=== PATIENT | female | born 1970 | race African-American/Black ===

== ENCOUNTER 2016-06-26 14:38 | Inpatient (IN) | payer OTHER ==
[2016-06-26] VITALS (9 sets, daily range): BP systolic 91–129; BP diastolic 68–94
[~2016-06-26] VITALS: Ht 165.1 cm; Wt 61.3 kg
[~2016-06-26 14:38] MED LIST: CIPRO500 MG PO; CYANOCOBALAM1000 MCG PO; KEPPRA500 MG PO; LIBRIUM25 MG PO; MOTRIN800 MG PO; SIMVASTATIN10 MG PO; VITAMIN D-32000 UNI2 PO
[2016-06-26 15:34] LABS: HEMATOCRIT 41.8 % (36.0-46.0); MCH 32.9 PG (29.0-34.0); MCHC 33.7 G/DL (30.0-36.0); MCV 97.7 FL (83-99); MEAN PLAT.VOLUME 10.2 uM^3 (9.5-12.4); PLATELET COUNT 101 K/uL (156-360); RBC DIS.WIDTH-CV 14.5 % (11.8-14.6); RBC DIS.WIDTH-SD 49.2 % (39-53); RED BLOOD COUNT 4.28 M/uL (3.80-5.20); WHITE BLOOD COUNT 6.1 K/uL (4.1-10.2)
[2016-06-26 15:46] LABS: BICARBONATE 23.1 mEq/L (22-26); CARBOXY HGB 3.7 % (0-5); METHEMOGLOBIN 1.2 % (0-1.5); PO2 76 mm Hg (80-100)
[2016-06-26 15:47] LABS: COMMENTS - BLOOD GASES A+C+; DEVICE VENT; FI02 50 %; MECHANICAL RATE 14 resp/min; MODE A/C; PCO2 40 mm Hg (35-45); PEEP 5 CM/H20; SITE RR; TIDAL VOLUME 400 ML; TOTAL RESP RATE 14 resp/min; pH 7.37 (7.35-7.45)
[2016-06-26 15:57] LABS: TROP-I INTERPRETATION NEGATIVE; TROPONIN-I 0.06 ng/mL (0.0-0.30)
[2016-06-26 16:08] LABS: CHLORIDE 106 mEq/L (99-109); POTASSIUM 3.4 mEq/L (3.7-5.4); SODIUM 139 mEq/L (136-147)
[2016-06-26 16:11] LABS: GLUCOSE 118 mg/dL (70-99)
[2016-06-26 16:12] LABS: ANION GAP 14 MEQ/L (2-14); TOTAL BILIRUBIN 0.5 mg/dL (0.0-1.0)
[2016-06-26 16:14] LABS: ALKALINE PHOSPHATASE 87 IU/L (3-129); GFR ESTIMATE (CALCULATED) > 59 mL/min/; SERUM ETHYL ALCOHOL < 10 mg/dL
[2016-06-26 16:15] LABS: UREA NITROGEN (BUN) 10 mg/dL (9-23)
[2016-06-26 16:45] LABS: ADD MIUA? YES; BILIRUBIN NEGATIVE; BLOOD NEGATIVE; COLOR YELLOW ((YELLOW)); GLUCOSE (STRIP) NEGATIVE; KETONES NEGATIVE; LEUKOCYTES NEGATIVE; NITRITE NEGATIVE; PROTEIN (STRIP) 100; SPECIFIC GRAVITY 1.015 (1.000-1.030); UROBILINOGEN 0.2 MG/DL (0.2-1.0)
[2016-06-26 16:57] LABS: BACTERIA RARE /HPF; EPITHELIAL CELLS RARE /HPF; HYALINE CASTS 15-20 /LPF; MUCUS TRACE /LPF; RED BLOOD CELLS 0-5 /HPF (0-5); UCUL ADDED? NO; UNCLASSIFIED CASTS 0-5 /LPF; WHITE BLOOD CELLS 0-5 /HPF (0-5)
[2016-06-26] MEDS ORDERED: KEPPRA1000 MG PO (17:03)
[2016-06-26] MEDS ORDERED: CYANOCOBALAM1000 MCG PO (17:03)
[2016-06-26] MEDS ORDERED: NAPROXEN500 MG PO (17:04)
[2016-06-26] MEDS ORDERED: TRAMADOL HCL50 MG PO (17:04)
[2016-06-26 21:15] LABS: METH RESISTANT S AUREUS PCR NEGATIVE (NEGATIVE)
[2016-06-26 21:17] LABS: PROBE CHECK PASS; SPECIMEN PROCESSING CONTROL PASS
[2016-06-27] VITALS (28 sets, daily range): BP systolic 80–130; BP diastolic 53–86
[2016-06-27 02:37] LABS: AMPHETAMINE NEGATIVE (500 ng/mL); BARBITURATES NEGATIVE (200 ng/mL); BENZODIAZEPINES PRESUMPTIVE POSITIVE (150 ng/mL); COCAINE NEGATIVE (150 ng/mL); INTERNAL CONTROLS VALID? YES; METHADONE NEGATIVE (200 ng/mL); METHAMPHETAMINE NEGATIVE (500 ng/mL); OPIATES (MORPHINE) NEGATIVE (100 ng/mL); OXYCODONE NEGATIVE (100 ng/mL); PHENCYCLIDINE NEGATIVE (25 ng/mL); PROPOXYPHENE NEGATIVE (300 ng/mL); THC CANNABINOIDS NEGATIVE (50 ng/mL); TRICYCLIC ANTIDEPRESSANTS NEGATIVE (300 ng/mL)
[2016-06-27 02:38] LABS: ADD MEDTOX COMMENT Y
[2016-06-27 04:06] LABS: BENZODIAZEPINES, URINE SCREEN POSITIVE (200 ng/mL)
[2016-06-27 08:37] LABS: ALKALINE PHOSPHATASE 65 IU/L (3-129); DIRECT BILIRUBIN 0.1 mg/dL (0.0-0.3); TOTAL BILIRUBIN 0.6 MG/DL (0.0-1.0)
[2016-06-27 09:34] LABS: EOSINOPHIL (%) 0 % (0-5); HEMATOCRIT 38.6 % (36.0-46.0); IMMATURE GRANULOCYTE (%) 0.2 % (0.0-0.7); LYMPHOCYTE COUNT 0.9 K/uL (1.0-2.8); MCH 34.4 PG (29.0-34.0); MCV 98.5 FL (83-99); MEAN PLAT.VOLUME 11.9 uM^3 (9.5-12.4); MONOCYTE (%) 12.7 % (3-12); MONOCYTE COUNT 0.7 K/uL (0-0.8); NEUTROPHIL (%) 69.6 % (45-76); NEUTROPHIL COUNT 3.7 K/uL (1.8-6.4); PLATELET COUNT 96 K/uL (156-360); RBC DIS.WIDTH-CV 15.1 % (11.8-14.6); RBC DIS.WIDTH-SD 54.4 % (39-53); RED BLOOD COUNT 3.92 M/uL (3.80-5.20); WHITE BLOOD COUNT 5.3 K/uL (4.1-10.2)
[2016-06-27 09:54] LABS: ANION GAP 11 MEQ/L (2-14); CHLORIDE 107 MEQ/L (99-109); MAGNESIUM 1.5 mg/dl (1.3-2.7); SAMPLE HEMOLYSIS CHECK 0; SAMPLE ICTERIC CHECK 0; SAMPLE LIPEMIA CHECK 0; SODIUM 138 MEQ/L (136-147)
[2016-06-27 10:00] LABS: GFR ESTIMATE (CALCULATED) > 59 mL/min/; GLUCOSE 121 mg/dL (70-99); UREA NITROGEN (BUN) 7 mg/dL (9-23)
[2016-06-28] VITALS (23 sets, daily range): BP systolic 80–157; BP diastolic 48–95
[2016-06-28 06:24] LABS: ANION GAP 8 MEQ/L (2-14); CHLORIDE 109 MEQ/L (99-109); POTASSIUM 3.4 MEQ/L (3.7-5.4); SAMPLE HEMOLYSIS CHECK 0; SAMPLE ICTERIC CHECK 0; SAMPLE LIPEMIA CHECK 0; SODIUM 140 MEQ/L (136-147)
[2016-06-28 06:30] LABS: GFR ESTIMATE (CALCULATED) > 59 mL/min/; GLUCOSE 99 mg/dL (70-99); UREA NITROGEN (BUN) 6 mg/dL (9-23)
[2016-06-28 06:45] LABS: MAGNESIUM 2.2 mg/dl (1.3-2.7)
[2016-06-28 06:55] LABS: EOSINOPHIL (%) 0 % (0-5); HEMATOCRIT 36.8 % (36.0-46.0); IMMATURE GRANULOCYTE (%) 0.2 % (0.0-0.7); LYMPHOCYTE COUNT 1.5 K/uL (1.0-2.8); MCH 34.2 PG (29.0-34.0); MCHC 35.3 G/DL (30.0-36.0); MCV 96.8 FL (83-99); MEAN PLAT.VOLUME 12.2 uM^3 (9.5-12.4); MONOCYTE (%) 7.2 % (3-12); MONOCYTE COUNT 0.7 K/uL (0-0.8); NEUTROPHIL (%) 76.6 % (45-76); NEUTROPHIL COUNT 7.1 K/uL (1.8-6.4); PLATELET COUNT 93 K/uL (156-360); RBC DIS.WIDTH-CV 14.7 % (11.8-14.6); RBC DIS.WIDTH-SD 51.6 % (39-53); WHITE BLOOD COUNT 9.2 K/uL (4.1-10.2)
[2016-06-28 20:27] LABS: BASE EXCESS -0.5 mEq/L (-3 to +3); BICARBONATE 22.8 mEq/L (22-26); CARBOXY HGB 1.8 % (0-5); COMMENTS - BLOOD GASES A+C+; DEVICE VM; FI02 50 %; METHEMOGLOBIN 1.7 % (0-1.5); O2 FLOW 12 L/MIN; PCO2 32 mm Hg (35-45); PO2 97 mm Hg (80-100); SITE LR; TOTAL RESP RATE 22 resp/min; pH 7.46 (7.35-7.45)
[2016-06-29] VITALS (7 sets, daily range): BP systolic 118–152; BP diastolic 81–93
[2016-06-29 06:09] LABS: EOSINOPHIL (%) 0 % (0-5); IMMATURE GRANULOCYTE (%) 0.1 % (0.0-0.7); LYMPHOCYTE COUNT 1.2 K/uL (1.0-2.8); MCH 32.8 PG (29.0-34.0); MCV 96.4 FL (83-99); MEAN PLAT.VOLUME 11.2 uM^3 (9.5-12.4); MONOCYTE COUNT 0.6 K/uL (0-0.8); NEUTROPHIL (%) 77.7 % (45-76); NEUTROPHIL COUNT 6.2 K/uL (1.8-6.4); PLATELET COUNT 116 K/uL (156-360); RBC DIS.WIDTH-CV 14.9 % (11.8-14.6); RBC DIS.WIDTH-SD 52.6 % (39-53); RED BLOOD COUNT 3.63 M/uL (3.80-5.20)
[2016-06-29 06:49] LABS: ANION GAP 13 MEQ/L (2-14); CHLORIDE 103 MEQ/L (99-109); GFR ESTIMATE (CALCULATED) > 59 mL/min/; GLUCOSE 96 mg/dL (70-99); SAMPLE HEMOLYSIS CHECK 0; SAMPLE ICTERIC CHECK 0; SAMPLE LIPEMIA CHECK 0; SODIUM 137 MEQ/L (136-147); UREA NITROGEN (BUN) 4 mg/dL (9-23)
[2016-06-29 07:05] LABS: MAGNESIUM 1.6 mg/dl (1.3-2.7)
[2016-06-30] VITALS (8 sets, daily range): BP systolic 104–129; BP diastolic 76–87
[2016-06-30 06:34] LABS: ALKALINE PHOSPHATASE 41 IU/L (3-129); ANION GAP 8 MEQ/L (2-14); CHLORIDE 106 MEQ/L (99-109); EOSINOPHIL (%) 0.4 % (0-5); GFR ESTIMATE (CALCULATED) > 59 mL/min/; GLUCOSE 96 mg/dL (70-99); IMMATURE GRANULOCYTE (%) 0.2 % (0.0-0.7); LYMPHOCYTE COUNT 1.4 K/uL (1.0-2.8); MAGNESIUM 1.8 mg/dl (1.3-2.7); MCH 32.5 PG (29.0-34.0); MCHC 33.5 G/DL (30.0-36.0); MCV 96.9 FL (83-99); MEAN PLAT.VOLUME 11.2 uM^3 (9.5-12.4); MONOCYTE (%) 9.8 % (3-12); MONOCYTE COUNT 0.5 K/uL (0-0.8); NEUTROPHIL (%) 62.9 % (45-76); NEUTROPHIL COUNT 3.3 K/uL (1.8-6.4); PLATELET COUNT 147 K/uL (156-360); POTASSIUM 3.3 MEQ/L (3.7-5.4); RBC DIS.WIDTH-CV 14.9 % (11.8-14.6); RBC DIS.WIDTH-SD 53.1 % (39-53); RED BLOOD COUNT 3.51 M/uL (3.80-5.20); SAMPLE HEMOLYSIS CHECK 0; SAMPLE ICTERIC CHECK 0; SAMPLE LIPEMIA CHECK 0; SODIUM 140 MEQ/L (136-147); TOTAL BILIRUBIN 0.5 MG/DL (0.0-1.0); UREA NITROGEN (BUN) 5 mg/dL (9-23)
[2016-06-30 06:38] LABS: WHITE BLOOD COUNT 5.2 K/uL (4.1-10.2)
[2016-07-01] VITALS (9 sets, daily range): BP systolic 126–142; BP diastolic 85–97
[2016-07-01 05:54] LABS: EOSINOPHIL (%) 0.2 % (0-5); HEMATOCRIT 33.5 % (36.0-46.0); LYMPHOCYTE COUNT 1.4 K/uL (1.0-2.8); MCHC 34.3 G/DL (30.0-36.0); MCV 99.1 FL (83-99); MONOCYTE (%) 14.1 % (3-12); MONOCYTE COUNT 0.7 K/uL (0-0.8); NEUTROPHIL (%) 59.1 % (45-76); RBC DIS.WIDTH-CV 14.9 % (11.8-14.6); RBC DIS.WIDTH-SD 53.7 % (39-53); RED BLOOD COUNT 3.38 M/uL (3.80-5.20); WHITE BLOOD COUNT 5.1 K/uL (4.1-10.2)
[2016-07-01 06:50] LABS: MEAN PLAT.VOLUME 11.1 uM^3 (9.5-12.4)
[2016-07-01 06:52] LABS: PLATELET COUNT 196 K/uL (156-360)
[2016-07-01 06:54] LABS: ALKALINE PHOSPHATASE 41 IU/L (3-129); ANION GAP 10 MEQ/L (2-14); CHLORIDE 106 MEQ/L (99-109); GFR ESTIMATE (CALCULATED) > 59 mL/min/; GLUCOSE 151 mg/dL (70-99); MAGNESIUM 1.7 mg/dl (1.3-2.7); POTASSIUM 3.7 MEQ/L (3.7-5.4); SAMPLE HEMOLYSIS CHECK 0; SAMPLE ICTERIC CHECK 0; SAMPLE LIPEMIA CHECK 0; SODIUM 139 MEQ/L (136-147); TOTAL BILIRUBIN 0.3 MG/DL (0.0-1.0); UREA NITROGEN (BUN) 8 mg/dL (9-23)
[2016-07-02] VITALS: BP 112/75
[2016-07-02 04:00] VITALS: BP 103/74
[2016-07-02 06:10] LABS: EOSINOPHIL (%) 0.3 % (0-5); HEMATOCRIT 29.4 % (36.0-46.0); IMMATURE GRANULOCYTE (%) 0.2 % (0.0-0.7); LYMPHOCYTE COUNT 1.8 K/uL (1.0-2.8); MCH 33.8 PG (29.0-34.0); MCV 99.3 FL (83-99); MEAN PLAT.VOLUME 10.9 uM^3 (9.5-12.4); MONOCYTE (%) 11.5 % (3-12); MONOCYTE COUNT 0.7 K/uL (0-0.8); NEUTROPHIL (%) 56.3 % (45-76); NEUTROPHIL COUNT 3.3 K/uL (1.8-6.4); PLATELET COUNT 207 K/uL (156-360); RBC DIS.WIDTH-CV 15.1 % (11.8-14.6); RBC DIS.WIDTH-SD 54.9 % (39-53); RED BLOOD COUNT 2.96 M/uL (3.80-5.20); WHITE BLOOD COUNT 5.8 K/uL (4.1-10.2)
[2016-07-02 06:52] LABS: ALKALINE PHOSPHATASE 37 IU/L (3-129); ANION GAP 7 MEQ/L (2-14); CHLORIDE 111 MEQ/L (99-109); GFR ESTIMATE (CALCULATED) > 59 mL/min/; MAGNESIUM 1.6 mg/dl (1.3-2.7); POTASSIUM 4.1 MEQ/L (3.7-5.4); SAMPLE HEMOLYSIS CHECK 0; SAMPLE ICTERIC CHECK 0; SAMPLE LIPEMIA CHECK 0; SODIUM 139 MEQ/L (136-147); TOTAL BILIRUBIN 0.3 MG/DL (0.0-1.0); UREA NITROGEN (BUN) 12 mg/dL (9-23)
[2016-07-02 06:53] LABS: GLUCOSE 107 mg/dL (70-99)
[2016-07-02 08:00] VITALS: BP 114/77
[2016-07-02 12:00] VITALS: BP 118/84
[2016-07-02 16:00] VITALS: BP 110/83
[2016-07-02 20:00] VITALS: BP 127/82
[2016-07-03] VITALS: BP 151/98
[2016-07-03 04:00] VITALS: BP 151/86
[2016-07-03 05:51] LABS: MCH 34.1 PG (29.0-34.0); MCHC 34.4 G/DL (30.0-36.0); MCV 99.1 FL (83-99); MEAN PLAT.VOLUME 11.1 uM^3 (9.5-12.4); PLATELET COUNT 256 K/uL (156-360); RBC DIS.WIDTH-CV 14.8 % (11.8-14.6); RBC DIS.WIDTH-SD 54.3 % (39-53); RED BLOOD COUNT 3.23 M/uL (3.80-5.20); WHITE BLOOD COUNT 6.3 K/uL (4.1-10.2)
[2016-07-03 05:52] LABS: EOSINOPHIL (%) 0.2 % (0-5); IMMATURE GRANULOCYTE (%) 0.2 % (0.0-0.7); MONOCYTE (%) 16.9 % (3-12); MONOCYTE COUNT 1.1 K/uL (0-0.8); NEUTROPHIL (%) 66.6 % (45-76); NEUTROPHIL COUNT 4.2 K/uL (1.8-6.4)
[2016-07-03 06:23] LABS: ALKALINE PHOSPHATASE 43 IU/L (3-129); ANION GAP 11 MEQ/L (2-14); CHLORIDE 107 MEQ/L (99-109); GFR ESTIMATE (CALCULATED) > 59 mL/min/; GLUCOSE 121 mg/dL (70-99); MAGNESIUM 1.8 mg/dl (1.3-2.7); POTASSIUM 3.6 MEQ/L (3.7-5.4); SAMPLE HEMOLYSIS CHECK 0; SAMPLE ICTERIC CHECK 0; SAMPLE LIPEMIA CHECK 0; SODIUM 140 MEQ/L (136-147); TOTAL BILIRUBIN 0.3 MG/DL (0.0-1.0); UREA NITROGEN (BUN) 9 mg/dL (9-23)
[2016-07-03 08:00] VITALS: BP 133/90
[2016-07-03 12:00] VITALS: BP 112/75
[2016-07-03 16:00] VITALS: BP 138/90
[2016-07-03 20:00] VITALS: BP 126/82
[2016-07-04] VITALS (14 sets, daily range): BP systolic 0–145; BP diastolic 0–98
[2016-07-04 06:13] LABS: MCH 33.7 PG (29.0-34.0); MCHC 34.2 G/DL (30.0-36.0); MCV 98.5 FL (83-99); MEAN PLAT.VOLUME 11.2 uM^3 (9.5-12.4); PLATELET COUNT 299 K/uL (156-360); RBC DIS.WIDTH-CV 15.1 % (11.8-14.6); RBC DIS.WIDTH-SD 54.3 % (39-53); RED BLOOD COUNT 3.35 M/uL (3.80-5.20); WHITE BLOOD COUNT 4.5 K/uL (4.1-10.2)
[2016-07-04 06:16] LABS: EOSINOPHIL (%) 0.4 % (0-5); IMMATURE GRANULOCYTE (%) 0.7 % (0.0-0.7); LYMPHOCYTE COUNT 1.3 K/uL (1.0-2.8); MONOCYTE (%) 17.8 % (3-12); MONOCYTE COUNT 0.8 K/uL (0-0.8); NEUTROPHIL (%) 51.2 % (45-76); NEUTROPHIL COUNT 2.3 K/uL (1.8-6.4)
[2016-07-04 06:54] LABS: ANION GAP 13 MEQ/L (2-14); CHLORIDE 108 MEQ/L (99-109); GFR ESTIMATE (CALCULATED) > 59 mL/min/; GLUCOSE 94 mg/dL (70-99); MAGNESIUM 1.8 mg/dl (1.3-2.7); SAMPLE HEMOLYSIS CHECK 0; SAMPLE ICTERIC CHECK 0; SAMPLE LIPEMIA CHECK 0; SODIUM 142 MEQ/L (136-147); UREA NITROGEN (BUN) 11 mg/dL (9-23)
[2016-07-05 04:31] VITALS: BP 115/58
[2016-07-05 09:39] VITALS: BP 127/80
[2016-07-05] MEDS ORDERED: LEVETIRACETAM500 MG PO (09:50)
[2016-07-05] MEDS ORDERED: CARVEDILOL6.25 MG PO (09:50)
[2016-07-05] MEDS ORDERED: DILANTIN100 MG PO (09:50)
[2016-07-05] MEDS ORDERED: LISINOPRIL2.5 MG PO (09:50)
[2016-07-05 10:32] LABS: ANION GAP 11 MEQ/L (2-14); CHLORIDE 105 MEQ/L (99-109); GFR ESTIMATE (CALCULATED) > 59 mL/min/; GLUCOSE 92 mg/dL (70-99); MAGNESIUM 1.7 mg/dl (1.3-2.7); POTASSIUM 3.2 MEQ/L (3.7-5.4); SAMPLE HEMOLYSIS CHECK 0; SAMPLE ICTERIC CHECK 0; SAMPLE LIPEMIA CHECK 0; SODIUM 142 MEQ/L (136-147); UREA NITROGEN (BUN) 9 mg/dL (9-23)
[2016-07-05] MEDS ORDERED: LEVAQUIN500 MG PO (11:48)
[2016-07-05 12:21] VITALS: BP 131/77
[2016-07-05 15:38] VITALS: BP 122/77
== END 2016-07-05 17:27 | disposition home or self-care (01) | DRG 100 ==
LOC: EME 14:38 → 4WEST 17:35 → EDOF 17:35 → 4WEST 19:09 → 4EAST 07-04 16:35
PROVIDERS: Emergency Medicine; Hospitalist; Internal Medicine; Internal Medicine Critical Care Medicine; Internal Medicine Nephrology
PROC: 5A1945Z Respiratory Ventilation, 24-96 Consecutive Hours (ICD-10-PCS; principal; 2016-06-26)
PROC: 0BH17EZ Insertion of Endotracheal Airway into Trachea, Via Natural or Artificial Opening (ICD-10-PCS; principal; 2016-06-26)
DX: G40.901 Epilepsy, unspecified, not intractable, with status epilepticus (principal); J96.01 Acute respiratory failure with hypoxia; J69.0 Pneumonitis due to inhalation of food and vomit; I50.21 Acute systolic (congestive) heart failure; I48.92 Unspecified atrial flutter; E87.2 Acidosis; I10 Essential (primary) hypertension; F17.200 Nicotine dependence, unspecified, uncomplicated; I48.91 Unspecified atrial fibrillation; R73.9 Hyperglycemia, unspecified; E87.6 Hypokalemia; Z91.19 Patient's noncompliance with other medical treatment and regimen; E88.09 Other disorders of plasma-protein metabolism, not elsewhere classified; B96.3 Hemophilus influenzae [H. influenzae] as the cause of diseases classified elsewhere; F10.10 Alcohol abuse, uncomplicated; I42.0 Dilated cardiomyopathy
CPT/HCPCS: 36600; 70450; 71010; 71275; 74000; 80048; 80053; 80076; 80185; 81003; 82330; 82607; 82803; 83605; 83735; 83880; 84100; 84484; 84999; 85025; 85027; 87040; 87070; 87077; 87086; 87181; 87185; 87205; 87641; 92507 GN; 92523 GN; 92526 GN; 92610 GN; 93005; 93306; 94002; 94003; 94760; 94799; 95956; 97530 GO; 97530 GP; 97532 GN; 99281; 99285; G0480; J0153; J0295; J0696; J1165; J1644; J1940; J1953; J2060; J2250; J2405; J2543; J2704; J3010; J3411; J3475; J3480; J7030; J7040; J7050

== ENCOUNTER 2016-11-10 10:55 | Inpatient (IN) | payer OTHER ==
[2016-11-10] VITALS (10 sets, daily range): BP systolic 68–125; BP diastolic 51–91
[~2016-11-10] VITALS: Ht 165.1 cm; Wt 59.9 kg
[~2016-11-10 10:55] MED LIST changes: +CARVEDILOL6.25 MG PO; +DILANTIN100 MG PO; +KEPPRA1000 MG PO; +LEVAQUIN500 MG PO; +LEVETIRACETAM500 MG PO; +LISINOPRIL2.5 MG PO; +NAPROXEN500 MG PO; +TRAMADOL HCL50 MG PO
[2016-11-10 11:29] LABS: HEMATOCRIT 32.7 % (36.0-46.0); MCH 35.9 PG (29.0-34.0); MCHC 33.3 G/DL (30.0-36.0); MCV 107.6 FL (83-99); MEAN PLAT.VOLUME 12.3 uM^3 (9.5-12.4); PLATELET COUNT 150 K/uL (156-360); RBC DIS.WIDTH-CV 15.2 % (11.8-14.6); RBC DIS.WIDTH-SD 59.8 % (39-53); RED BLOOD COUNT 3.04 M/uL (3.80-5.20); WHITE BLOOD COUNT 3.8 K/uL (4.1-10.2)
[2016-11-10] MEDS ORDERED: CARVEDILOL12.5 MG PO (11:44)
[2016-11-10] MEDS ORDERED: CYCLOBENZAPRINE5 MG PO (11:47)
[2016-11-10 12:09] LABS: BASE EXCESS -7.6 mEq/L (-3 to +3); BICARBONATE 18.2 mEq/L (22-26); CARBOXY HGB 3.7 % (0-5); METHEMOGLOBIN 1.1 % (0-1.5); PO2 123 mm Hg (80-100)
[2016-11-10 12:10] LABS: COMMENTS - BLOOD GASES A+C+; DEVICE 840 PB; FI02 60 %; MECHANICAL RATE 16 resp/min; MODE AC; PCO2 37 mm Hg (35-45); PRES. SUPPORT 5 CM/H2O; SITE LR; TIDAL VOLUME 450 ML; TOTAL RESP RATE 16 resp/min
[2016-11-10 12:35] LABS: ADD MIUA? YES; BILIRUBIN NEGATIVE; BLOOD SMALL; COLOR YELLOW ((YELLOW)); GLUCOSE (STRIP) 150; KETONES NEGATIVE; LEUKOCYTES TRACE; NITRITE NEGATIVE; PROTEIN (STRIP) >=500; SPECIFIC GRAVITY 1.017 (1.000-1.030); UROBILINOGEN 0.2 MG/DL (0.2-1.0)
[2016-11-10 12:37] LABS: EOSINOPHIL (%) 0.5 % (0-5); IMMATURE GRANULOCYTE (%) 0.3 % (0.0-0.7); LYMPHOCYTE COUNT 2.6 K/uL (1.0-2.8); MONOCYTE (%) 3.7 % (3-12); MONOCYTE COUNT 0.1 K/uL (0-0.8); NEUTROPHIL (%) 27.7 % (45-76)
[2016-11-10 12:40] LABS: BACTERIA RARE /HPF; EPITHELIAL CELLS RARE /HPF; MUCUS TRACE /LPF; RED BLOOD CELLS 0-5 /HPF (0-5)
[2016-11-10 12:55] LABS: AMPHETAMINE NEGATIVE (500 ng/mL); BARBITURATES PRESUMPTIVE POSITIVE (200 ng/mL); BENZODIAZEPINES NEGATIVE (150 ng/mL); COCAINE NEGATIVE (150 ng/mL); METHADONE NEGATIVE (200 ng/mL); METHAMPHETAMINE NEGATIVE (500 ng/mL); OPIATES (MORPHINE) NEGATIVE (100 ng/mL); OXYCODONE NEGATIVE (100 ng/mL); PHENCYCLIDINE NEGATIVE (25 ng/mL); THC CANNABINOIDS NEGATIVE (50 ng/mL); TRICYCLIC ANTIDEPRESSANTS NEGATIVE (300 ng/mL)
[2016-11-10 12:56] LABS: ADD MEDTOX COMMENT Y; INTERNAL CONTROLS VALID? YES; PROPOXYPHENE NEGATIVE (300 ng/mL)
[2016-11-10 13:09] LABS: CHLORIDE 107 mEq/L (99-109); POTASSIUM 4.1 mEq/L (3.7-5.4); SODIUM 138 mEq/L (136-147)
[2016-11-10 13:11] LABS: INTER. NORMALIZED RATIO 1.1; PROTHROMBIN TIME 10.7 (9.2-11.2); PTT 24.5 (25-32)
[2016-11-10 13:12] LABS: GLUCOSE 148 mg/dL (70-99)
[2016-11-10 13:13] LABS: ANION GAP 14 MEQ/L (2-14); TOTAL BILIRUBIN 0.4 mg/dL (0.0-1.0)
[2016-11-10 13:14] LABS: SERUM ETHYL ALCOHOL < 10 mg/dL
[2016-11-10 13:15] LABS: ALKALINE PHOSPHATASE 93 IU/L (3-129); GFR ESTIMATE (CALCULATED) > 59 mL/min/
[2016-11-10 13:16] LABS: UREA NITROGEN (BUN) 12 mg/dL (9-23)
[2016-11-10 13:17] LABS: DIRECT BILIRUBIN 0.1 mg/dL (0.0-0.3)
[2016-11-10 13:18] LABS: CREATINE KINASE 84 IU/L (1-294)
[2016-11-10 13:23] LABS: BARBITUATES QUANT VALUE 0 NG/ML
[2016-11-10 13:24] LABS: TROP-I INTERPRETATION NEGATIVE; TROPONIN-I 0.03 ng/mL (0.0-0.30)
[2016-11-10] MEDS ORDERED: LISINOPRIL2.5 MG PO (13:58)
[2016-11-10] MEDS ORDERED: CARVEDILOL25 MG PO (13:59)
[2016-11-10 17:43] LABS: BASE EXCESS -7.9 mEq/L (-3 to +3); BICARBONATE 15.5 mEq/L (22-26); CARBOXY HGB 1.7 % (0-5); METHEMOGLOBIN 1.6 % (0-1.5)
[2016-11-10 17:44] LABS: COMMENTS - BLOOD GASES A+C+; DEVICE 840; FI02 60 %; MECHANICAL RATE 16 resp/min; MODE A/C; PCO2 25 mm Hg (35-45); PEEP 5 CM/H20; PO2 83 mm Hg (80-100); SITE RR; TIDAL VOLUME 450 ML
[2016-11-10 18:17] LABS: METH RESISTANT S AUREUS PCR NEGATIVE (NEGATIVE)
[2016-11-10 18:33] LABS: PROBE CHECK PASS; SPECIMEN PROCESSING CONTROL PASS
[2016-11-11] VITALS (13 sets, daily range): BP systolic 54–123; BP diastolic 39–98
[2016-11-11 04:25] LABS: BASE EXCESS -8.6 mEq/L (-3 to +3); BICARBONATE 14.6 mEq/L (22-26); CARBOXY HGB 1.2 % (0-5); METHEMOGLOBIN 1.4 % (0-1.5); PCO2 23 mm Hg (35-45); pH 7.41 (7.35-7.45)
[2016-11-11 04:26] LABS: COMMENTS - BLOOD GASES C+; DEVICE VENT; FI02 40 %; MECHANICAL RATE 16 resp/min; MODE ACVC; PEEP 5 CM/H20; PO2 65 mm Hg (80-100); SITE A-LINE; TIDAL VOLUME 450 ML; TOTAL RESP RATE 16 resp/min
[2016-11-11 04:37] LABS: CHLORIDE 114 mEq/L (99-109); POTASSIUM 4.1 mEq/L (3.7-5.4); SODIUM 136 mEq/L (136-147)
[2016-11-11 04:39] LABS: HEMATOCRIT 26.8 % (36.0-46.0); MCH 35.6 PG (29.0-34.0); MCHC 35.1 G/DL (30.0-36.0); MCV 101.5 FL (83-99); NRBC (%) 0.3 /100 WBC (0-0); RBC DIS.WIDTH-CV 13.6 % (11.8-14.6); RED BLOOD COUNT 2.64 M/uL (3.80-5.20); WHITE BLOOD COUNT 6.8 K/uL (4.1-10.2)
[2016-11-11 04:40] LABS: GLUCOSE 149 mg/dL (70-99)
[2016-11-11 04:41] LABS: ANION GAP 9 MEQ/L (2-14)
[2016-11-11 04:43] LABS: GFR ESTIMATE (CALCULATED) > 59 mL/min/
[2016-11-11 04:44] LABS: UREA NITROGEN (BUN) 12 mg/dL (9-23)
[2016-11-11 04:50] LABS: MAGNESIUM 0.9 mg/dL (1.3-2.7)
[2016-11-11 04:55] LABS: ADD MIUA? YES; BILIRUBIN NEGATIVE; BLOOD LARGE; COLOR YELLOW ((YELLOW)); GLUCOSE (STRIP) NEGATIVE; KETONES NEGATIVE; LEUKOCYTES TRACE; NITRITE NEGATIVE; PROTEIN (STRIP) 100; SPECIFIC GRAVITY 1.017 (1.000-1.030); UROBILINOGEN 0.2 MG/DL (0.2-1.0)
[2016-11-11 05:20] LABS: BACTERIA RARE /HPF; EPITHELIAL CELLS RARE /HPF; HYALINE CASTS 30-40 /LPF; MUCUS 2+ /LPF; RED BLOOD CELLS TNTC /HPF (0-5); UCUL ADDED? NO
[2016-11-11 05:30] LABS: EOSINOPHIL (%) 0 % (0-5); IMMATURE GRANULOCYTE (%) 0.1 % (0.0-0.7); INSTRUMENT ABS NEUTROPHIL CT 4.5 K/uL; LYMPHOCYTE COUNT 1.9 K/uL (1.0-2.8); MEAN PLAT.VOLUME 10.8 uM^3 (9.5-12.4); MONOCYTE (%) 5.9 % (3-12); MONOCYTE COUNT 0.4 K/uL (0-0.8); NEUTROPHIL (%) 65.4 % (45-76); NEUTROPHIL COUNT 4.5 K/uL (1.8-6.4); PLAT.SUFFICIENCY DECREASED
[2016-11-11 05:31] LABS: PLATELET COUNT 76 K/uL (156-360)
[2016-11-11 05:49] LABS: POINT-OF-CARE METER ID UU13113731
[2016-11-11 11:45] LABS: POINT-OF-CARE METER ID UU13113731
[2016-11-11 16:59] LABS: POINT-OF-CARE METER ID UU14174217
[2016-11-12] VITALS (8 sets, daily range): BP systolic 109–153; BP diastolic 63–89
[2016-11-12 00:41] LABS: POINT-OF-CARE METER ID UU14174217; POINT-OF-CARE USER ID LABHNS84
[2016-11-12 05:34] LABS: POINT-OF-CARE METER ID UU14174217; POINT-OF-CARE USER ID LABHNS84
[2016-11-12 06:10] LABS: ANION GAP 7 MEQ/L (2-14); CHLORIDE 111 MEQ/L (99-109); GFR ESTIMATE (CALCULATED) > 59 mL/min/; MAGNESIUM 1.6 mg/dl (1.3-2.7); SAMPLE HEMOLYSIS CHECK 0; SAMPLE ICTERIC CHECK 0; SAMPLE LIPEMIA CHECK 0; SODIUM 138 MEQ/L (136-147); UREA NITROGEN (BUN) 8 mg/dL (9-23)
[2016-11-12 06:12] LABS: GLUCOSE 101 mg/dL (70-99); POTASSIUM 3.1 MEQ/L (3.7-5.4)
[2016-11-12 06:35] LABS: EOSINOPHIL (%) 0.2 % (0-5); HEMATOCRIT 24.9 % (36.0-46.0); IMMATURE GRANULOCYTE (%) 0.3 % (0.0-0.7); INSTRUMENT ABS NEUTROPHIL CT 4.2 K/uL; LYMPHOCYTE COUNT 1.5 K/uL (1.0-2.8); MCH 36.2 PG (29.0-34.0); MCHC 35.7 G/DL (30.0-36.0); MCV 101.2 FL (83-99); MEAN PLAT.VOLUME 10.6 uM^3 (9.5-12.4); MONOCYTE (%) 6.7 % (3-12); MONOCYTE COUNT 0.4 K/uL (0-0.8); NEUTROPHIL (%) 68.1 % (45-76); NEUTROPHIL COUNT 4.2 K/uL (1.8-6.4); RBC DIS.WIDTH-CV 14.1 % (11.8-14.6); RBC DIS.WIDTH-SD 51.8 % (39-53); RED BLOOD COUNT 2.46 M/uL (3.80-5.20); WHITE BLOOD COUNT 6.2 K/uL (4.1-10.2)
[2016-11-12 06:39] LABS: PLATELET COUNT 102 K/uL (156-360)
[2016-11-12 09:10] LABS: BASE EXCESS -1.9 mEq/L (-3 to +3); BICARBONATE 21.3 mEq/L (22-26); CARBOXY HGB 1.4 % (0-5); METHEMOGLOBIN 1.2 % (0-1.5); PCO2 30 mm Hg (35-45); PO2 96 mm Hg (80-100); SITE ALINE; pH 7.46 (7.35-7.45)
[2016-11-12 09:11] LABS: COMMENTS - BLOOD GASES C+; CONTINUOUS POS AIRWAY PRESSURE 5 cm H2O; DEVICE 840; FI02 30 %; MODE TUBE COMPENSATION; TOTAL RESP RATE 27 resp/min
[2016-11-12 12:08] LABS: POINT-OF-CARE METER ID UU14174217
[2016-11-13 00:15] VITALS: BP 139/88
[2016-11-13 07:40] VITALS: BP 154/92
[2016-11-13 11:30] VITALS: BP 137/74
[2016-11-13 15:17] VITALS: BP 134/83
[2016-11-13 15:47] LABS: EOSINOPHIL (%) 0 % (0-5); HEMATOCRIT 28.8 % (36.0-46.0); IMMATURE GRANULOCYTE (%) 0.4 % (0.0-0.7); INSTRUMENT ABS NEUTROPHIL CT 4.7 K/uL; LYMPHOCYTE COUNT 1.6 K/uL (1.0-2.8); MCH 36.2 PG (29.0-34.0); MCHC 35.1 G/DL (30.0-36.0); MCV 103.2 FL (83-99); MONOCYTE (%) 7.1 % (3-12); MONOCYTE COUNT 0.5 K/uL (0-0.8); NEUTROPHIL (%) 69.1 % (45-76); NEUTROPHIL COUNT 4.7 K/uL (1.8-6.4); NRBC (%) 0.3 /100 WBC (0-0); RBC DIS.WIDTH-CV 13.9 % (11.8-14.6); RBC DIS.WIDTH-SD 53.1 % (39-53); RED BLOOD COUNT 2.79 M/uL (3.80-5.20); WHITE BLOOD COUNT 6.8 K/uL (4.1-10.2)
[2016-11-13 16:26] LABS: ANION GAP 14 MEQ/L (2-14); CHLORIDE 107 MEQ/L (99-109); GFR ESTIMATE (CALCULATED) > 59 mL/min/; GLUCOSE 112 mg/dL (70-99); POTASSIUM 3.7 MEQ/L (3.7-5.4); SAMPLE HEMOLYSIS CHECK 0; SAMPLE ICTERIC CHECK 0; SAMPLE LIPEMIA CHECK 0; SODIUM 139 MEQ/L (136-147); UREA NITROGEN (BUN) 8 mg/dL (9-23)
[2016-11-13 16:27] LABS: MAGNESIUM 2.1 mg/dl (1.3-2.7)
[2016-11-13 19:39] VITALS: BP 146/82
[2016-11-13 21:30] LABS: HEMATOLOGY COMMENT 1 SN; MEAN PLAT.VOLUME 11.3 uM^3 (9.5-12.4); PLAT.SUFFICIENCY DECREASED; PLATELET COUNT 121 K/uL (156-360)
[2016-11-14 00:04] VITALS: BP 103/71
[2016-11-14 03:25] VITALS: BP 134/82
[2016-11-14 06:01] LABS: EOSINOPHIL (%) 0 % (0-5); HEMATOCRIT 28.5 % (36.0-46.0); IMMATURE GRANULOCYTE (%) 0.4 % (0.0-0.7); INSTRUMENT ABS NEUTROPHIL CT 4.5 K/uL; MCH 37.5 PG (29.0-34.0); MCHC 36.5 G/DL (30.0-36.0); MCV 102.9 FL (83-99); MEAN PLAT.VOLUME 10.9 uM^3 (9.5-12.4); MONOCYTE (%) 9.5 % (3-12); MONOCYTE COUNT 0.7 K/uL (0-0.8); NEUTROPHIL COUNT 4.5 K/uL (1.8-6.4); PLATELET COUNT 143 K/uL (156-360); RBC DIS.WIDTH-CV 13.7 % (11.8-14.6); RBC DIS.WIDTH-SD 51.7 % (39-53); RED BLOOD COUNT 2.77 M/uL (3.80-5.20); WHITE BLOOD COUNT 7.3 K/uL (4.1-10.2)
[2016-11-14 06:26] LABS: ALKALINE PHOSPHATASE 48 IU/L (3-129); ANION GAP 11 MEQ/L (2-14); CHLORIDE 105 MEQ/L (99-109); GFR ESTIMATE (CALCULATED) > 59 mL/min/; GLUCOSE 125 mg/dL (70-99); MAGNESIUM 1.7 mg/dl (1.3-2.7); POTASSIUM 3.4 MEQ/L (3.7-5.4); SAMPLE HEMOLYSIS CHECK 0; SAMPLE ICTERIC CHECK 0; SAMPLE LIPEMIA CHECK 0; SODIUM 138 MEQ/L (136-147); TOTAL BILIRUBIN 1.3 MG/DL (0.0-1.0); UREA NITROGEN (BUN) 10 mg/dL (9-23)
[2016-11-14 07:40] VITALS: BP 111/78
[2016-11-14 11:28] VITALS: BP 116/78
[2016-11-14 15:18] VITALS: BP 110/71
[2016-11-14 20:02] VITALS: BP 100/63
[2016-11-15 00:13] VITALS: BP 98/55
[2016-11-15 04:20] VITALS: BP 119/57
[2016-11-15 07:25] VITALS: BP 114/63
[2016-11-15 10:30] LABS: EOSINOPHIL (%) 0.7 % (0-5); HEMATOCRIT 23.2 % (36.0-46.0); IMMATURE GRANULOCYTE (%) 0.2 % (0.0-0.7); INSTRUMENT ABS NEUTROPHIL CT 2.5 K/uL; LYMPHOCYTE COUNT 1.3 K/uL (1.0-2.8); MCH 36.2 PG (29.0-34.0); MCHC 34.9 G/DL (30.0-36.0); MCV 103.6 FL (83-99); MEAN PLAT.VOLUME 10.6 uM^3 (9.5-12.4); MONOCYTE (%) 13.8 % (3-12); MONOCYTE COUNT 0.6 K/uL (0-0.8); NEUTROPHIL (%) 56.6 % (45-76); NEUTROPHIL COUNT 2.5 K/uL (1.8-6.4); PLATELET COUNT 145 K/uL (156-360); RBC DIS.WIDTH-CV 13.8 % (11.8-14.6); RBC DIS.WIDTH-SD 52.6 % (39-53); RED BLOOD COUNT 2.24 M/uL (3.80-5.20); WHITE BLOOD COUNT 4.4 K/uL (4.1-10.2)
[2016-11-15 11:12] VITALS: BP 103/57
[2016-11-15 15:08] VITALS: BP 120/59
[2016-11-15 19:30] VITALS: BP 118/57
== END 2016-11-15 19:32 | disposition left against medical advice (07) | DRG 100 ==
LOC: EME 10:55 → EDOF 15:08 → 4WEST 15:08 → 5SOUTH 15:08 → 4WEST 16:10 → 5SOUTH 11-12 22:32
PROVIDERS: Emergency Medicine; Hospitalist; Internal Medicine; Internal Medicine Nephrology
PROC: 0BH17EZ Insertion of Endotracheal Airway into Trachea, Via Natural or Artificial Opening (ICD-10-PCS; principal; 2016-11-10)
PROC: 5A1945Z Respiratory Ventilation, 24-96 Consecutive Hours (ICD-10-PCS; principal; 2016-11-10)
PROC: 02HV33Z Insertion of Infusion Device into Superior Vena Cava, Percutaneous Approach (ICD-10-PCS; 2016-11-11)
DX: G40.409 Other generalized epilepsy and epileptic syndromes, not intractable, without status epilepticus (principal); J96.01 Acute respiratory failure with hypoxia; J69.0 Pneumonitis due to inhalation of food and vomit; R57.9 Shock, unspecified; D64.9 Anemia, unspecified; E87.2 Acidosis; F10.288 Alcohol dependence with other alcohol-induced disorder; Y90.0 Blood alcohol level of less than 20 mg/100 ml; F17.200 Nicotine dependence, unspecified, uncomplicated; F81.9 Developmental disorder of scholastic skills, unspecified; G31.9 Degenerative disease of nervous system, unspecified; I11.0 Hypertensive heart disease with heart failure; I50.22 Chronic systolic (congestive) heart failure; J98.11 Atelectasis; R48.0 Dyslexia and alexia; Z86.73 Personal history of transient ischemic attack (TIA), and cerebral infarction without residual deficits; Z91.14 Patient's other noncompliance with medication regimen; R00.0 Tachycardia, unspecified; K02.9 Dental caries, unspecified
CPT/HCPCS: 36600; 36620; 70450; 71010; 71020; 71250; 80048; 80048 91; 80053; 80076; 80185; 81003; 82550; 82803; 82948; 83605; 83735; 84100; 84484; 84999; 85025; 85025 91; 85610; 85730; 87040; 87070; 87086; 87205; 87641; 92523 GN; 92610 GN; 93005; 94002; 94003; 94640; 94640 76; 94799; 97530 GO; 99202; 99281; 99285; G0480; J0610; J1165; J1644; J1815; J1940; J1953; J2060; J2250; J2310; J2543; J2704; J3010; J3411; J3475; J7030; J7040; J7050; J7120; P9047; S0028

== ENCOUNTER 2016-11-28 12:48 | Emergency (ER) | payer OTHER ==
[~2016-11-28] VITALS: Ht 165.1 cm; Wt 52.8 kg
[~2016-11-28 12:48] MED LIST changes: +CARVEDILOL12.5 MG PO; +CARVEDILOL25 MG PO; +CYCLOBENZAPRINE5 MG PO
[2016-11-28 13:02] VITALS: BP 130/67
== END 2016-11-28 16:01 | disposition left against medical advice (07) ==
LOC: EME 12:48
DX: M79.642 Pain in left hand (principal); M79.89 Other specified soft tissue disorders; Z53.21 Procedure and treatment not carried out due to patient leaving prior to being seen by health care provider

== ENCOUNTER 2017-04-12 09:44 | Observation (INO) | payer OTHER ==
[~2017-04-12] VITALS: Ht 157.5 cm; Wt 56.3 kg
[~2017-04-12 09:44] MED LIST changes: +AUGMENTIN875 MG PO; +CLEOCIN300 MG PO; +PERIDEX473 ML MM
[2017-04-12 10:01] LABS: EOSINOPHIL (%) 0.8 % (0-5); HEMATOCRIT 37.9 % (36.0-46.0); INSTRUMENT ABS NEUTROPHIL CT 0.9 K/uL; LYMPHOCYTE COUNT 2.5 K/uL (1.0-2.8); MCHC 33.5 G/DL (30.0-36.0); MCV 107.4 FL (83-99); MEAN PLAT.VOLUME 10.4 uM^3 (9.5-12.4); MONOCYTE (%) 11.5 % (3-12); MONOCYTE COUNT 0.4 K/uL (0-0.8); NEUTROPHIL (%) 23.9 % (45-76); NEUTROPHIL COUNT 0.9 K/uL (1.8-6.4); PLATELET COUNT 259 K/uL (156-360); RBC DIS.WIDTH-CV 13.8 % (11.8-14.6); RBC DIS.WIDTH-SD 55.3 % (39-53); RED BLOOD COUNT 3.53 M/uL (3.80-5.20); WHITE BLOOD COUNT 3.8 K/uL (4.1-10.2)
[2017-04-12 10:06] LABS: INTER. NORMALIZED RATIO 1.1; PROTHROMBIN TIME 12.2 SEC (10.2-12.9)
[2017-04-12 10:09] LABS: PTT 29.8 SEC (25-37)
[2017-04-12 10:10] LABS: AMYLASE 102 IU/L (1-118); CHLORIDE 105 mEq/L (99-109); POTASSIUM 4.9 mEq/L (3.7-5.4); SODIUM 139 mEq/L (136-147)
[2017-04-12 10:11] LABS: GLUCOSE 143 mg/dL (70-99)
[2017-04-12 10:13] LABS: ANION GAP 21 MEQ/L (2-14)
[2017-04-12 10:14] LABS: SERUM ETHYL ALCOHOL < 10 mg/dL
[2017-04-12 10:15] LABS: GFR ESTIMATE (CALCULATED) > 59 mL/min/
[2017-04-12 10:16] LABS: UREA NITROGEN (BUN) 14 mg/dL (9-23)
[2017-04-12 10:18] LABS: LIPASE 16 U/L (1.0-51.0)
[2017-04-12 10:24] LABS: QUANTITATIVE HCG < 4.0 MIU/ML; TROP-I INTERPRETATION NEGATIVE; TROPONIN-I < 0.01 ng/mL (0.0-0.30)
[2017-04-12 10:47] LABS: ADD MIUA? YES; BILIRUBIN NEGATIVE; BLOOD SMALL; COLOR YELLOW ((YELLOW)); GLUCOSE (STRIP) NEGATIVE; KETONES NEGATIVE; LEUKOCYTES NEGATIVE; NITRITE NEGATIVE; PROTEIN (STRIP) 100; UROBILINOGEN 0.2 MG/DL (0.2-1.0)
[2017-04-12 10:55] LABS: AMPHETAMINE NEGATIVE (500 ng/mL); BARBITURATES NEGATIVE (200 ng/mL); BENZODIAZEPINES NEGATIVE (150 ng/mL); COCAINE NEGATIVE (150 ng/mL); INTERNAL CONTROLS VALID? YES; METHADONE NEGATIVE (200 ng/mL); METHAMPHETAMINE NEGATIVE (500 ng/mL); OPIATES (MORPHINE) NEGATIVE (100 ng/mL); OXYCODONE NEGATIVE (100 ng/mL); PHENCYCLIDINE NEGATIVE (25 ng/mL); PROPOXYPHENE NEGATIVE (300 ng/mL); THC CANNABINOIDS NEGATIVE (50 ng/mL); TRICYCLIC ANTIDEPRESSANTS NEGATIVE (300 ng/mL)
[2017-04-12 11:02] LABS: AMORPHOUS URATES CRYSTALS 3+; BACTERIA RARE /HPF; CRYSTALS PRESENT; EPITHELIAL CELLS NONE SEEN /HPF; MUCUS NONE SEEN /LPF; RED BLOOD CELLS 0-5 /HPF (0-5); UCUL ADDED? NO; WHITE BLOOD CELLS 0-5 /HPF (0-5)
[2017-04-12] MEDS ORDERED: KEPPRA750 MG PO (14:55)
[2017-04-12 17:30] VITALS: BP 109/73
[2017-04-12 19:00] VITALS: BP 109/63
[2017-04-13] VITALS (7 sets, daily range): BP systolic 79–134; BP diastolic 48–80
[2017-04-13 05:52] LABS: ANION GAP 10 MEQ/L (2-14); CHLORIDE 107 MEQ/L (99-109); SAMPLE HEMOLYSIS CHECK 0; SAMPLE ICTERIC CHECK 0; SAMPLE LIPEMIA CHECK 0; SODIUM 137 MEQ/L (136-147)
[2017-04-13 05:57] LABS: ALKALINE PHOSPHATASE 60 IU/L (3-129); GFR ESTIMATE (CALCULATED) > 59 mL/min/; UREA NITROGEN (BUN) 9 mg/dL (9-23)
[2017-04-13 05:58] LABS: GLUCOSE 100 mg/dL (70-99); POTASSIUM 3.9 MEQ/L (3.7-5.4)
[2017-04-13 08:38] LABS: POINT-OF-CARE METER ID UU14162513
[2017-04-14 00:28] VITALS: BP 115/56
[2017-04-14 05:41] VITALS: BP 114/55
[2017-04-14 07:19] LABS: ANION GAP 8 MEQ/L (2-14); CHLORIDE 112 MEQ/L (99-109); GFR ESTIMATE (CALCULATED) > 59 mL/min/; GLUCOSE 80 mg/dL (70-99); POTASSIUM 3.7 MEQ/L (3.7-5.4); SAMPLE HEMOLYSIS CHECK 0; SAMPLE ICTERIC CHECK 0; SAMPLE LIPEMIA CHECK 0; SODIUM 141 MEQ/L (136-147); UREA NITROGEN (BUN) 10 mg/dL (9-23)
[2017-04-14 08:03] VITALS: BP 129/65
[2017-04-14] MEDS ORDERED: VIMPAT50 MG PO (12:57)
[2017-04-14] MEDS ORDERED: LEVETIRACETAM500 MG PO (12:57)
[2017-04-14] MEDS ORDERED: COREG12.5 M1 PO (12:57)
== END 2017-04-14 14:15 | disposition home or self-care (01) ==
LOC: EME 09:44 → EDOF 14:23 → 5WEST 14:23 → ENRESERV 14:26 → 5WEST 17:14
PROVIDERS: Emergency Medicine; Family Medicine
DX: G40.901 Epilepsy, unspecified, not intractable, with status epilepticus (principal); F10.19 Alcohol abuse with unspecified alcohol-induced disorder; I10 Essential (primary) hypertension; R45.1 Restlessness and agitation; F41.9 Anxiety disorder, unspecified; I95.9 Hypotension, unspecified; R41.82 Altered mental status, unspecified; Z87.19 Personal history of other diseases of the digestive system; F17.210 Nicotine dependence, cigarettes, uncomplicated
CPT/HCPCS: 70450; 80048; 80053; 81003; 82150; 82330; 82948; 83690; 84484; 84702; 85025; 85610; 85730; 86850; 86900; 86901; 93005; 99281; 99285; G0378; G0480; J1165; J2060; J2250; J7030; J7040; J7050

== ENCOUNTER 2017-10-23 13:45 | Emergency (ER) | payer OTHER ==
[~2017-10-23] VITALS: Ht 165.1 cm; Wt 57.9 kg
[~2017-10-23 13:45] MED LIST changes: +COREG12.5 M1 PO; +KEPPRA750 MG PO; +VIMPAT50 MG PO
[2017-10-23 13:59] LABS: COMMENTS - BLOOD GASES +C; SITE RB
[2017-10-23 14:00] LABS: DEVICE NC; O2 FLOW 3 L/MIN; TOTAL RESP RATE 16 resp/min
[2017-10-23 14:02] LABS: HEMATOCRIT 34.9 % (36.0-46.0); HEMOGLOBIN 11.8 G/DL (11.9-15.5); MCH 35.5 PG (29.0-34.0); MCHC 33.8 G/DL (30.0-36.0); MCV 105.1 FL (83-99); PLATELET COUNT 220 K/uL (156-360); RBC DIS.WIDTH-CV 13.4 % (11.8-14.6); RBC DIS.WIDTH-SD 52.3 % (39-53); RED BLOOD COUNT 3.32 M/uL (3.80-5.20); WHITE BLOOD COUNT 5.8 K/uL (4.1-10.2)
[2017-10-23 14:09] LABS: BICARBONATE 18.4 mEq/L (22-26); CARBOXY HGB 4.3 % (0-5); METHEMOGLOBIN 1.2 % (0-1.5); O2 SATURATION (CALCULATED) 98.7 % (95-99); PCO2 40 mm Hg (35-45); PO2 92 mm Hg (80-100)
[2017-10-23 14:10] LABS: pH 7.27 (7.35-7.45)
[2017-10-23 14:11] LABS: APPEARANCE CLOUDY ((CLEAR)); BILIRUBIN NEGATIVE; BLOOD MODERATE; COLOR AMBER ((YELLOW)); GLUCOSE (STRIP) NEGATIVE; KETONES NEGATIVE; LEUKOCYTES NEGATIVE; NITRITE NEGATIVE; PROTEIN (STRIP) >=500; SPECIFIC GRAVITY 1.018 (1.000-1.030); UROBILINOGEN 0.2 MG/DL (0.2-1.0)
[2017-10-23 14:13] LABS: ALBUMIN 4.5 g/dL (3.2-4.8); CHLORIDE 101 mEq/L (99-109); POTASSIUM 4.3 mEq/L (3.7-5.4); SODIUM 137 mEq/L (136-147)
[2017-10-23 14:15] LABS: GLUCOSE 153 mg/dL (70-99); TOTAL PROTEIN 10.3 g/dL (6.4-8.3)
[2017-10-23 14:17] LABS: TOTAL BILIRUBIN 0.8 mg/dL (0.0-1.0)
[2017-10-23 14:18] LABS: SERUM ETHYL ALCOHOL < 10 mg/dL
[2017-10-23 14:19] LABS: ALKALINE PHOSPHATASE 119 IU/L (3-129); CREATININE 1.2 mg/dL (0.6-1.3); GFR ESTIMATE (CALCULATED) 51 mL/min/
[2017-10-23 14:20] LABS: AST (GOT) 65 IU/L (2-34); UREA NITROGEN (BUN) 11 mg/dL (9-23)
[2017-10-23 14:22] LABS: ALT (GPT) 44 IU/L (3-49)
[2017-10-23 14:28] LABS: QUANTITATIVE HCG 6.1 MIU/ML
[2017-10-23 14:29] LABS: RED BLOOD CELLS RARE /HPF (0-5); WHITE BLOOD CELLS RARE /HPF (0-5)
[2017-10-23 14:30] LABS: AMORPHOUS URATES CRYSTALS 2+; BACTERIA 1+ /HPF; EPITHELIAL CELLS 2+ /HPF; MUCUS NONE SEEN /LPF
[2017-10-23 14:35] LABS: AMPHETAMINE NEGATIVE (500 ng/mL); BARBITURATES NEGATIVE (200 ng/mL); BENZODIAZEPINES NEGATIVE (150 ng/mL); BUPRENORPHINE NEGATIVE (10 ng/mL); COCAINE NEGATIVE (150 ng/mL); METHADONE NEGATIVE (200 ng/mL); METHAMPHETAMINE NEGATIVE (500 ng/mL); OPIATES (MORPHINE) NEGATIVE (100 ng/mL); OXYCODONE NEGATIVE (100 ng/mL); PHENCYCLIDINE NEGATIVE (25 ng/mL); PROPOXYPHENE NEGATIVE (300 ng/mL); THC CANNABINOIDS NEGATIVE (50 ng/mL); TRICYCLIC ANTIDEPRESSANTS NEGATIVE (300 ng/mL)
[2017-10-23] MEDS ORDERED: DILANTIN100 MG PO (16:23)
[2017-10-23] MEDS ORDERED: KEPPRA750 MG PO (16:25)
[2017-10-23 21:22] VITALS: BP 95/64
== END 2017-10-23 21:24 | disposition home or self-care (01) ==
LOC: EME 13:45
PROVIDERS: Emergency Medicine
DX: G40.909 Epilepsy, unspecified, not intractable, without status epilepticus (principal); M79.642 Pain in left hand
CPT/HCPCS: 36600; 70450; 71045; 73130; 80053; 80185; 81003; 82803; 84702; 85027; 93005; 99281; 99285; G0480; J1165; J1953; J7030; J7050